=== PATIENT | male | born 1990 | race Caucasian/White ===

== ENCOUNTER 2018-01-25 10:27 | Emergency (ER) | payer BC, OTHER ==
[2018-01-25 10:48] VITALS: BP 152/88
[2018-01-25] MEDS ORDERED: Tetan/Diph/Pertus SYR(Tdap)* 0.5 ML SYR(BOOSTRIX) use SYR IM ONE (10:58)
--- NOTE | 2018-01-25 10:59 | UC ---
Laceration HPI - HPI Summary HPI Summary: 27 yo male presents with laceration to left palm. He tells me that around 1000 today he was at work and wrench fell and hit his hand - he sustained a small laceration here. He is unsure the date of his last tetanus. He came directly to . - History Of Current Complaint Chief Complaint: UCLaceration Stated Complaint: LT HAND INJURY (WC) Hx Obtained From: Patient Laceration Location: Hand Severity: Mild Pain Intensity: 1 Pain Scale Used: 0-10 Numeric - Allergies/Home Medications Allergies/Adverse Reactions: Allergies Allergy/AdvReac Type Severity Reaction Status Date / Time No Known Allergies Allergy Verified 01/25/18 10:44 Home Medications: Home Medications Wcbhejso-Qwvdesr-Luih 149-Hyal [Glucosamine-Chondr Complex Tab] 1 each PO DAILY 01/25/18 [History Confirmed 01/25/18] PMH/Surg Hx/FS Hx/Imm Hx - Additional Past Medical History Additional PMH: None - Surgical History Surgical History: None - Family History Known Family History: Positive: None - Social History Occupation: Employed Full-time Lives: With Family Alcohol Use: Occasionally Substance Use Type: None Smoking Status (MU): Heavy Every Day Tobacco Smoker Type: Cigarettes Amount Used/How Often: 1/2ppd - Immunization History Most Recent Tetanus Shot: unknown Review of Systems All Other Systems Reviewed And Are Negative: Yes Constitutional: Positive: Negative Skin: Positive: Other - Laceration left hand Respiratory: Positive: Negative Cardiovascular: Positive: Negative Musculoskeletal: Positive: Negative Neurological: Positive: Negative Psychological: Positive: Negative Physical Exam - Summary Physical Exam Summary: GENERAL: NAD. WDWN. No pain distress. SKIN: LEFT PALM at web space between thumb and index finger there is a 7mm linear laceration with mild subcutaneous tissue exposed. No tendon involvement. NECK: Supple. Nontender. No lymphadenopathy. CHEST: No accessory muscle use. Breathing comfortably and in no distress. CV: Pulses intact. Cap refill <2seconds MSK: FROM at left hand and all fingers without pain NEURO: Alert. PSYCH: Age appropriate behavior. Triage Information Reviewed: Yes Vital Signs: Initial Vital Signs Temp 98 F 01/25/18 10:39 Pulse 87 01/25/18 10:39 Resp 16 01/25/18 10:39 BP 152/88 01/25/18 10:39 Pulse Ox 99 01/25/18 10:39 Vital Signs Reviewed: Yes Laceration Repair - Laceration Repair 1 Description: Linear Laceration Size After Repair: Length (cm) - 0.7 Anesthesia Used: 2.0% Lido Irrigation With Pressure Irrigation Device: Yes Closure Material: Sutures - TWO Closure Method: Single Layer Suture Of: Skin Suture Type: Prolene - 5-0 Laceration Course/Dx - Course/Dx Course Of Treatment: The procedure was explained to the pt and all questions were answered. A time out was performed, witnessed, and signed. The area was irrigated with 250mL sterile saline. 1mL of 2% lidocaine without epi was administered and good anesthetization was achieved. In the usual sterile fashion , TWO 5-0 prolene interrupted sutures were placed. The wound was bandaged with a band-aid. Pt tolerated procedure well. tdap updated today - Differential Dx - Laceration/Wound Provider Diagnoses: Laceration left palm Discharge - Sign-Out/Discharge Documenting (check all that apply): Patient Departure All imaging exams completed and their final reports reviewed: No Studies - Discharge Plan Condition: Stable Disposition: HOME Patient Education Materials: Care For Your Stitches (ED), Laceration (ED) Referrals: Alli Peters MD [Primary Care Provider] - Additional Instructions: If you develop a fever, shortness of breath, chest pain, new or worsening symptoms - please call your PCP or go to the ED. Your blood pressure was high at todays visit. Please see your primary provider within 4 weeks for recheck and re-evaluation. 1) Please keep the area bandaged, clean, dry, and intact for the next 24- 48hours. 2) If you develop a fever, colored or thick discharge, increased pain or swelling - please call your PCP or go to the ED. 3) Please return in 7-10 days to have your TWO sutures removed. - Billing Disposition and Condition Condition: STABLE Disposition: Home - Attestation Statements Provider Attestation: I was available for consult. This patient was seen by the SURYA. The patient was not presented to, seen by, or examined by me. -Qamar
[2018-01-25] MEDS ORDERED: Lidocaine 2% PF * 5 ML VIAL INJ ONE (11:07)
== END 2018-01-25 11:44 | disposition home or self-care (01) ==
LOC: UCCORT 10:27
DX: S61.412A Laceration without foreign body of left hand, initial encounter (principal); W20.8XXA Other cause of strike by thrown, projected or falling object, initial encounter; Y92.9 Unspecified place or not applicable; F17.210 Nicotine dependence, cigarettes, uncomplicated
CPT/HCPCS: 12001; 90471; 90715; 99201; G0463